=== PATIENT | female | born 1950 | race Hispanic/Latino ===

== ENCOUNTER → 2017-10-26 | Outpatient (CLI) | payer OTHER ==
[~2017-10-26] MED LIST: ATOR20TA65 PO; MIRA50TA PO; SOLI5 PO
== END | disposition home or self-care (01) ==
LOC: RAH 15:02
PROVIDERS: ATTEND Urology
DX: N20.0 Calculus of kidney (principal)
CPT/HCPCS: 74018; 76100

== ENCOUNTER → 2017-11-09 | Outpatient (CLI) | payer OTHER | END | disposition home or self-care (01) | LOC: RAH 13:41 | PROVIDERS: ATTEND Urology | DX: N20.0 Calculus of kidney (principal); M47.896 Other spondylosis, lumbar region | CPT/HCPCS: 74018; 76100 ==

== ENCOUNTER 2017-12-13 05:44 | Day surgery (SDC) | payer OTHER ==
[2017-12-12 14:01] LABS: APPEARANCE,URINE Clear (CLEAR); BILIRUBIN,URINE Negative (NEGATIVE); COLOR,URINE Yellow (YELLOW); GLUCOSE, URINE (UA) Negative (NEGATIVE); KETONES,URINE Negative (NEGATIVE); LEUKOCYTE ESTERASE ,URINE Trace (NEGATIVE); NITRATE,URINE Negative (NEGATIVE); OCCULT BLOOD,URINE Negative (NEGATIVE); PH,URINE 6.5 (5.0-8.0); PROTEIN,URINE Negative (NEGATIVE); UROBILINOGEN,URINE 0.2 mg/dL (0.2-1.0)
[2017-12-12 14:02] VITALS: BP 142/73
[2017-12-12 14:03] LABS: HEMATOCRIT 37.4 % (36-48); MEAN CORPUSCULAR HGB CONC 34.8 g/dL (32.0-36.0); MEAN CORPUSCULAR VOLUME 89.1 fL (79-99); PLATELET COUNT (AUTO) 287 K/uL (130-400); RED CELL DISTRIBUTION WIDTH 14.2 % (11.0-15.5); WHITE BLOOD COUNT (AUTO) 9.8 K/uL (4.8-10.8)
[2017-12-12 14:18] LABS: CREATININE 0.8 mg/dL (0.5-1.5); POTASSIUM 4.2 mmol/L (3.5-5.1)
[2017-12-12 14:20] LABS: INR 0.95 (0.85-1.15)
[2017-12-12 14:25] LABS: BACTERIA,URINE None Seen /HPF (None Seen); RBC,URINE None Seen /HPF (0-1); SQUAMOUS EPITHELIAL CELL,UR 0-2 /HPF (0-2); WBC,URINE 0-1 /HPF (0-1)
[2017-12-13] VITALS (17 sets, daily range): BP systolic 107–130; BP diastolic 57–71
[~2017-12-13] VITALS: Ht 149.9 cm; Wt 81.6 kg
[~2017-12-13 05:44] MED LIST changes: -ATOR20TA65 PO; -MIRA50TA PO
[2017-12-13] MEDS ORDERED: LACTATED RINGERS 1000ML 1,000 ML IV ONE (05:54)
[2017-12-13] MEDS: CEFAZOLIN SODIUM 1 GM VIAL ONE ×2 (06:14→07:05)
[2017-12-13] MEDS ORDERED: ATOR20TA65 PO (06:15)
[2017-12-13] MEDS ORDERED: MIRA50TA PO (06:15)
[2017-12-13] MEDS ORDERED: MIDAZOLAM HCL 1 MG/ML 2ML VIAL ONE (07:07)
[2017-12-13] MEDS ORDERED: PROPOFOL 10 MG/ML 20ML VIAL IV ONE (07:08)
[2017-12-13] MEDS ORDERED: FENTANYL CITRATE PF 50 MCG/1 ML 2ML VIAL ONE (07:08)
[2017-12-13] MEDS ORDERED: EPHEDRINE SULFATE 50 MG/ML AMPULE ONE (07:38)
[2017-12-13] MEDS ORDERED: LACTATED RINGERS 1000ML 1,000 ML IV SCH (08:00)
[2017-12-13] MEDS ORDERED: CEFAZOLIN SODIUM 1 GM VIAL IVP ONE (08:00)
== END 2017-12-13 10:08 | disposition home or self-care (01) ==
LOC: DAH 05:44
PROVIDERS: ATTEND Urology
DX: N20.0 Calculus of kidney (principal); Z79.899 Other long term (current) drug therapy; E78.5 Hyperlipidemia, unspecified; Z90.710 Acquired absence of both cervix and uterus; Z98.51 Tubal ligation status; Z98.890 Other specified postprocedural states; E66.01 Morbid (severe) obesity due to excess calories; I10 Essential (primary) hypertension; I45.10 Unspecified right bundle-branch block
CPT/HCPCS: 36415; 50590; 71046; 74018; 80048; 81001; 85027; 85610; 85730; 87088; 93005; A4218; A4600; J0690; J2250; J2704; J3010; J3490; J7120 ×2

== ENCOUNTER → 2018-03-10 | Outpatient (CLI) | payer OTHER ==
[~2018-03-10] MED LIST changes: +ATOR20TA65 PO; +MIRA50TA PO
== END | disposition home or self-care (01) ==
LOC: RAH 13:11
PROVIDERS: ATTEND Urology
DX: N20.0 Calculus of kidney (principal); N28.89 Other specified disorders of kidney and ureter
CPT/HCPCS: 74018

== ENCOUNTER → 2019-10-26 | Outpatient (CLI) | payer OTHER | END | disposition home or self-care (01) | LOC: RAH 10:09 | PROVIDERS: ATTEND Urology | DX: K57.30 Diverticulosis of large intestine without perforation or abscess without bleeding (principal); N20.0 Calculus of kidney; K42.9 Umbilical hernia without obstruction or gangrene; J98.11 Atelectasis | CPT/HCPCS: 74176 ==